=== PATIENT | female | born 1975 | race Two or more races ===

== ENCOUNTER 2018-12-31 21:11 | Emergency (ER) | payer OTHER ==
[~2018-12-31] VITALS: Ht 165.1 cm; Wt 86.2 kg
[~2018-12-31 21:11] MED LIST: CLONAZEPAM0.5 MG; GEODON80 MG; NABUMETONE500 MG PO; NEURONTIN300 MG; NOVOLOG MI100 UNIT/1; PERCOCET 5-3251 EACH PO; PERCOCET 5/3251 TAB PO; PROSOM PO; PROZAC40 MG; WELLBUTRIN SR150 MG
[2018-12-31] MEDS ORDERED: ZOLOFT100 MG (21:43)
[2018-12-31] MEDS ORDERED: SONATA5 MG (21:45)
[2019-01-01] MEDS ORDERED: ALBUTEROL2.5 MG/3 M IH (02:58)
[2019-01-01] MEDS ORDERED: ZYNCOF 20-400120 ML PO (02:58)
[2019-01-01] MEDS ORDERED: ZITHROMAX500 MG PO (02:58)
== END 2019-01-01 03:08 | disposition home or self-care (01) ==
LOC: ER 21:11
DX: J22 Unspecified acute lower respiratory infection (principal)

== ENCOUNTER 2019-11-11 12:32 | Emergency (ER) | payer OTHER ==
[~2019-11-11] VITALS: Ht 165.1 cm; Wt 87.5 kg
[~2019-11-11 12:32] MED LIST changes: +ALBUTEROL2.5 MG/3 M IH; +SONATA5 MG; +ZITHROMAX500 MG PO; +ZOLOFT100 MG; +ZYNCOF 20-400120 ML PO
[2019-11-11] MEDS ORDERED: CLONAZEPAM1 M1 PO (12:58)
[2019-11-11] MEDS ORDERED: GABAPENTIN PO (12:59)
[2019-11-11] MEDS ORDERED: GEODON60 MG PO (12:59)
[2019-11-11] MEDS ORDERED: WELLBUTRIN XL300 MG PO (13:00)
== END 2019-11-11 16:28 | disposition home or self-care (01) ==
LOC: ER 12:32
DX: N39.0 Urinary tract infection, site not specified (principal)

== ENCOUNTER 2019-11-26 09:14 | Emergency (ER) | payer OTHER ==
[~2019-11-26] VITALS: Ht 165.1 cm; Wt 90.7 kg
[~2019-11-26 09:14] MED LIST changes: +CLONAZEPAM1 M1 PO; +GABAPENTIN PO; +GEODON60 MG PO; +LEVOTHYROXINE25 MCG PO; +NOVOLOG100 UNIT/1; +WELLBUTRIN XL300 MG PO
[2019-11-26] MEDS ORDERED: SONATA10 MG (09:41)
[2019-11-26] MEDS ORDERED: PROMETH-CODEIN 65 ML PO ×2 (14:44→14:45)
[2019-11-26] MEDS ORDERED: MUCINEX1200 MG PO (14:45)
== END 2019-11-26 16:12 | disposition home or self-care (01) ==
LOC: ER 09:14
DX: B34.9 Viral infection, unspecified (principal); R53.81 Other malaise

== ENCOUNTER 2019-12-01 08:47 | Day surgery (SDC) | payer OTHER ==
[~2019-12-01 08:47] MED LIST changes: +MUCINEX1200 MG PO; +PROMETH-CODEIN 65 ML PO; +SONATA10 MG
[2019-12-01] MEDS ORDERED: OXYC1TAB9 PO (09:51)
== END 2019-12-01 12:50 | disposition home or self-care (01) ==
LOC: CIR.AMB 08:47 → ADM 11:30 → CIR.AMB 12:50
DX: N83.01 Follicular cyst of right ovary (principal); N84.0 Polyp of corpus uteri

== ENCOUNTER 2020-10-27 18:21 | Emergency (ER) | payer OTHER ==
[~2020-10-27] VITALS: Ht 167.6 cm; Wt 99.8 kg
[~2020-10-27 18:21] MED LIST changes: +OXYC1TAB9 PO
[2020-10-27] MEDS ORDERED: NEURONTIN800 MG (18:43)
[2020-10-27] MEDS ORDERED: [UNRECOGNIZED DRUG - OTHER] (18:44)
[2020-10-27] MEDS ORDERED: SIMVASTATIN5 MG (18:45)
[2020-10-28] MEDS ORDERED: INTESTINEX680 M2 PO (00:51)
[2020-10-28] MEDS ORDERED: PEPCID AC20 MG PO (00:51)
[2020-10-28] MEDS ORDERED: IRON325 MG PO (00:51)
== END 2020-10-28 00:55 | disposition home or self-care (01) ==
LOC: ER 18:21
DX: D50.8 Other iron deficiency anemias (principal); B34.9 Viral infection, unspecified; R19.7 Diarrhea, unspecified; Z03.818 Encounter for observation for suspected exposure to other biological agents ruled out

== ENCOUNTER 2021-01-22 22:12 | Emergency (ER) | payer OTHER ==
[~2021-01-22] VITALS: Ht 167.6 cm; Wt 104.3 kg
[~2021-01-22 22:12] MED LIST changes: +INTESTINEX680 M2 PO; +IRON325 MG PO; +NEURONTIN800 MG; +PEPCID AC20 MG PO; +SIMVASTATIN5 MG; +[UNRECOGNIZED DRUG - OTHER]
[2021-01-22] MEDS ORDERED: SYNTHROID50 MCG (22:31)
[2021-01-22] MEDS ORDERED: SIMVASTATIN5 MG PO (22:32)
[2021-01-22] MEDS ORDERED: SONATA10 MG (22:32)
[2021-01-22] MEDS ORDERED: DEXEDRINE10 MG (22:35)
[2021-01-22] MEDS ORDERED: VALACYCLOVIR500 MG (22:36)
[2021-01-22] MEDS ORDERED: INTESTINEX680 M1 (22:37)
[2021-01-23] MEDS ORDERED: MUCINEX DM ER1 EAC1 PO (03:44)
[2021-01-23] MEDS ORDERED: AZITHROMYCIN500 MG PO (03:44)
== END 2021-01-23 03:44 | disposition home or self-care (01) ==
LOC: ER 22:12
DX: J44.1 Chronic obstructive pulmonary disease with (acute) exacerbation (principal); R07.89 Other chest pain; R05 Cough; Z03.818 Encounter for observation for suspected exposure to other biological agents ruled out

== ENCOUNTER 2023-02-07 09:24 | Outpatient (CLI) | payer OTHER ==
[~2023-02-07 09:24] MED LIST changes: +AZITHROMYCIN500 MG PO; +DEXEDRINE10 MG; +INTESTINEX680 M1; +MUCINEX DM ER1 EAC1 PO; +SIMVASTATIN5 MG PO; +SYNTHROID50 MCG; +VALACYCLOVIR500 MG
== END 2023-02-07 09:34 | disposition home or self-care (01) ==
LOC: RAD 09:24
DX: Z98.84 Bariatric surgery status (principal); E66.01 Morbid (severe) obesity due to excess calories